=== PATIENT | female | born 1985 | race Caucasian/White ===

== ENCOUNTER 2022-06-17 09:20 | Outpatient (CLI) | payer OTHER, SELFPAY ==
[2022-06-17 13:56] LABS: Vitamin D 25 Hydroxy* 45 ng/mL (30-80)
== END 2022-06-17 09:21 | disposition home or self-care (01) ==
PROVIDERS: Visit Provider Obstetrics & Gynecology
DX: F53.0 Postpartum depression (principal)
CPT/HCPCS: 82306; 84443

== ENCOUNTER 2022-10-10 11:23 | Outpatient (CLI) | payer OTHER, SELFPAY | END 2022-10-10 11:24 | disposition home or self-care (01) | PROVIDERS: Visit Provider Registered Nurse | DX: N89.8 Other specified noninflammatory disorders of vagina (principal) | CPT/HCPCS: 86592; 87252 ==

== ENCOUNTER 2023-04-14 11:00 | Outpatient (CLI) | payer OTHER, SELFPAY | END 2023-04-14 11:01 | disposition home or self-care (01) | PROVIDERS: Visit Provider Family Medicine | DX: Z00.00 Encounter for general adult medical examination without abnormal findings (principal); R59.1 Generalized enlarged lymph nodes; R07.89 Other chest pain; R22.1 Localized swelling, mass and lump, neck; Z11.59 Encounter for screening for other viral diseases | CPT/HCPCS: 80053; 84443; 86140; 86803 ==